=== PATIENT | male | born 1940 | race Hispanic/Latino ===

== ENCOUNTER 2019-12-29 14:07 | Inpatient (IN) | payer OTHER ==
[~2019-12-29] VITALS: Ht 172.7 cm; Wt 124.7 kg
[2019-12-29 14:39] LABS: BASOPHILS % (AUTO) 0.3 % (0.0-5.0); EOSINOPHILS % (AUTO) 1.5 % (0.0-8.0); HEMATOCRIT 43.3 % (42-54); MEAN CORPUSCULAR HGB CONC 33.5 g/dL (32.0-36.0); MEAN CORPUSCULAR VOLUME 95.6 fL (79-99); MONOCYTES % (AUTO) 8.9 % (3.0-13.0); NEUTROPHILS % (AUTO) 68.9 % (40.0-77.0); PLATELET COUNT (AUTO) 220 K/uL (130-400); RED BLOOD CELL COUNT(AUTO) 4.53 MIL/uL (4.50-6.20); RED CELL DISTRIBUTION WIDTH 13.4 % (11.0-15.5); WHITE BLOOD COUNT (AUTO) 7.5 K/uL (4.8-10.8)
[2019-12-29] MEDS ORDERED: ASPIRIN 325 MG TABLET ONE (14:39)
[2019-12-29 14:46] LABS: CREATININE 1.3 mg/dL (0.5-1.5); POTASSIUM 3.7 mmol/L (3.5-5.1)
[2019-12-29 14:50] LABS: ALBUMIN 3.5 g/dL (3.5-5.0); BILIRUBIN,TOTAL 0.5 mg/dL (0.2-1.0); INR 0.99 (0.85-1.15); PARTIAL THROMBOPLASTIN TIME 24.3 SEC (26.3-35.5); PROTHROMBIN TIME 10.7 SEC (9.6-11.6); TOTAL PROTEIN, SERUM 7.2 g/dL (6.0-8.3)
[2019-12-29 15:08] LABS: B-TYPE NATRIURETIC PEPTIDE 38 pg/mL (0-100)
[2019-12-29] MEDS ORDERED: ZOSYN 3.375GM+NS 50ML 50 ML IV ONE (15:21)
[2019-12-29] MEDS ORDERED: IOHEXOL-350 75 ML VIAL IV ONE (16:56)
[2019-12-29 17:19] VITALS: BP 132/74
[2019-12-29 17:22] VITALS: BP 134/58
[2019-12-29 17:26] VITALS: BP 119/68
[2019-12-29] MEDS: CEFAZOLIN SODIUM 1 GM VIAL IVP SCH (18:55)
[2019-12-29 20:00] VITALS: BP 145/79
[2019-12-29] MEDS: FAMOTIDINE 20MG TAB 20 MG TAB PO SCH (20:24)
[2019-12-29] MEDS ORDERED: LIS (20:34)
[2019-12-29] MEDS ORDERED: LISINOPRIL (20:35)
[2019-12-29 22:15] LABS: CREATINE KINASE, TOTAL 32 U/L (21-232); MYOGLOBIN 72 ng/mL (10-92); TROPONIN I < 0.04 ng/mL (0.00-0.06)
[2019-12-29 23:45] LABS: APPEARANCE,URINE Clear (CLEAR); BILIRUBIN,URINE Negative (NEGATIVE); COLOR,URINE Yellow (YELLOW); GLUCOSE, URINE (UA) TRACE mg/dL (NEGATIVE); KETONES,URINE Negative (NEGATIVE); LEUKOCYTE ESTERASE ,URINE Negative (NEGATIVE); NITRATE,URINE Negative (NEGATIVE); OCCULT BLOOD,URINE Negative (NEGATIVE); PROTEIN,URINE Negative (NEGATIVE)
[2019-12-30] VITALS (9 sets, daily range): BP systolic 116–154; BP diastolic 50–73
[2019-12-30 00:02] LABS: BACTERIA,URINE Rare /HPF (None Seen); SQUAMOUS EPITHELIAL CELL,UR 0-2 /HPF (0-2)
[2019-12-30] MEDS: CEFAZOLIN SODIUM 1 GM VIAL IVP SCH ×3 (00:54→17:18)
[2019-12-30 05:01] LABS: CRP QUANTITATIVE 14.1 mg/L (0.00-9.0); THYROID STIMULATING HORMONE 2.42 uIU/mL (0.36-3.74)
[2019-12-30] MEDS: FAMOTIDINE 20MG TAB 20 MG TAB PO SCH (09:00)
[2019-12-30] MEDS: ENOXAPARIN SODIUM 40 MG/0.4 ML SYRINGE SQ SCH (10:23)
[2019-12-30] MEDS: ASPIRIN 81MG TAB.CHEW PO SCH (10:24)
[2019-12-30] MEDS: METOPROLOL SUCCINATE 50 MG TAB.SR.24H PO SCH (13:34)
--- NOTE | 2019-12-30 13:57 | NUR ---
INITIAL SW spoke with patient. He states he lives with his , Jj Ta, [phone]. No home services. DME: cane, wheelchair, walker with seat. Patient states he needs help with ADL's and does not drive. Family assist him with both. PCP is Dr. Toby Estrella. Pharmacy is [facility] located [facility] in [place]. DCP is home. Addendum: 12/30/19 at 1359 by FLETCHER SARAH SS Amended: Links added.
[2019-12-31] MEDS: CEFAZOLIN SODIUM 1 GM VIAL IVP SCH ×3 (00:34→17:37)
[2019-12-31 04:00] VITALS: BP 140/74
[2019-12-31 06:32] LABS: BASOPHILS % (AUTO) 0.5 % (0.0-5.0); EOSINOPHILS % (AUTO) 4.2 % (0.0-8.0); HEMATOCRIT 40.8 % (42-54); LYMPHOCYTES % (AUTO) 26.1 % (21.0-51.0); MEAN CORPUSCULAR HEMOGLOBIN 32.4 pg (27.0-33.0); MEAN CORPUSCULAR HGB CONC 33.3 g/dL (32.0-36.0); MEAN CORPUSCULAR VOLUME 97.1 fL (79-99); MONOCYTES % (AUTO) 11.1 % (3.0-13.0); NEUTROPHILS % (AUTO) 57.4 % (40.0-77.0); PLATELET COUNT (AUTO) 193 K/uL (130-400); RED CELL DISTRIBUTION WIDTH 13.2 % (11.0-15.5); WHITE BLOOD COUNT (AUTO) 5.7 K/uL (4.8-10.8)
[2019-12-31 06:54] LABS: CREATININE 1.1 mg/dL (0.5-1.5); POTASSIUM 3.8 mmol/L (3.5-5.1)
[2019-12-31 08:00] VITALS: BP 119/49
[2019-12-31] MEDS: FAMOTIDINE 20MG TAB 20 MG TAB PO SCH (09:00)
[2019-12-31] MEDS: METOPROLOL SUCCINATE 50 MG TAB.SR.24H PO SCH (09:26)
[2019-12-31] MEDS: ENOXAPARIN SODIUM 40 MG/0.4 ML SYRINGE SQ SCH (09:26)
[2019-12-31] MEDS: ASPIRIN 81MG TAB.CHEW PO SCH (09:27)
[2019-12-31 12:00] VITALS: BP 129/71
[2019-12-31 16:00] VITALS: BP 126/51
[2019-12-31 19:00] VITALS: BP 133/52
[2020-01-01] VITALS (7 sets, daily range): BP systolic 124–147; BP diastolic 46–67
[2020-01-01] MEDS: CEFAZOLIN SODIUM 1 GM VIAL IVP SCH ×3 (01:18→18:05)
[2020-01-01] MEDS: FAMOTIDINE 20MG TAB 20 MG TAB PO SCH (09:00)
[2020-01-01] MEDS: ASPIRIN 81MG TAB.CHEW PO SCH (09:54)
[2020-01-01] MEDS: METOPROLOL SUCCINATE 50 MG TAB.SR.24H PO SCH (09:54)
[2020-01-01] MEDS: ENOXAPARIN SODIUM 40 MG/0.4 ML SYRINGE SQ SCH (09:56)
--- NOTE | 2020-01-01 16:47 | NUR ---
I HAVE SENT A MESSAGE TO DR KAUR IN REGARDS TO RECOMENDATION ON COVID TESTING IF NECESSARY; PENDING CALL BACK
--- NOTE | 2020-01-01 17:45 | NUR ---
RECEIVED CALL BACK FROM DR KAUR AND HE STATED PT DID NOT NEED COVID 19 TESTING
[2020-01-02] MEDS: CEFAZOLIN SODIUM 1 GM VIAL IVP SCH ×3 (01:54→16:49)
[2020-01-02 04:03] VITALS: BP 136/62
[2020-01-02 06:24] LABS: BASOPHILS % (AUTO) 0.3 % (0.0-5.0); EOSINOPHILS % (AUTO) 2.8 % (0.0-8.0); HEMATOCRIT 40.6 % (42-54); LYMPHOCYTES % (AUTO) 22.3 % (21.0-51.0); MEAN CORPUSCULAR HEMOGLOBIN 32.2 pg (27.0-33.0); MEAN CORPUSCULAR HGB CONC 33.5 g/dL (32.0-36.0); MEAN CORPUSCULAR VOLUME 96.2 fL (79-99); MONOCYTES % (AUTO) 8.9 % (3.0-13.0); NEUTROPHILS % (AUTO) 65.4 % (40.0-77.0); PLATELET COUNT (AUTO) 207 K/uL (130-400); RED BLOOD CELL COUNT(AUTO) 4.22 MIL/uL (4.50-6.20); WHITE BLOOD COUNT (AUTO) 5.7 K/uL (4.8-10.8)
[2020-01-02 06:32] LABS: CREATININE 1.2 mg/dL (0.5-1.5); POTASSIUM 3.7 mmol/L (3.5-5.1)
[2020-01-02] MEDS: FAMOTIDINE 20MG TAB 20 MG TAB PO SCH (09:00)
[2020-01-02 09:12] VITALS: BP_SYST 136; BP_SYST 148; BP_DIAS 59; BP_DIAS 79
[2020-01-02] MEDS: ASPIRIN 81MG TAB.CHEW PO SCH (09:27)
[2020-01-02] MEDS: METOPROLOL SUCCINATE 50 MG TAB.SR.24H PO SCH (09:28)
[2020-01-02] MEDS: ENOXAPARIN SODIUM 40 MG/0.4 ML SYRINGE SQ SCH (09:29)
[2020-01-02] MEDS ORDERED: MECLIZINE HCL 25 MG TABLET PO PRN (10:30)
[2020-01-02] MEDS ORDERED: LIDOCAINE 5% TOPICAL PATCH TP SCH (12:55)
[2020-01-02 16:12] VITALS: BP 142/63
[2020-01-02] MEDS ORDERED: KETOROLAC TROMETHAMINE 30MG/ML IM PRN (16:30)
[2020-01-02] MEDS ORDERED: ACETAMINOPHEN EXTRA STRENGTH 500 MG TABLET PO PRN (16:30)
[2020-01-02] MEDS ORDERED: KETOROLAC TROMETHAMINE 30MG/ML ONE (16:47)
[2020-01-02 19:39] VITALS: BP 151/63
[2020-01-02] MEDS ORDERED: IOHEXOL-350 75 ML VIAL IV ONE (19:40)
[2020-01-02] MEDS ORDERED: KETOROLAC TROMETHAMINE 15MG/ML IV PRN (22:30)
[2020-01-02 23:54] VITALS: BP 107/51
[2020-01-03] MEDS: CEFAZOLIN SODIUM 1 GM VIAL IVP SCH ×2 (01:46→08:48)
[2020-01-03 03:41] VITALS: BP 127/65
[2020-01-03 04:08] LABS: BASOPHILS % (AUTO) 0.4 % (0.0-5.0); EOSINOPHILS % (AUTO) 4.4 % (0.0-8.0); HEMATOCRIT 39.2 % (42-54); LYMPHOCYTES % (AUTO) 26.5 % (21.0-51.0); MEAN CORPUSCULAR HEMOGLOBIN 32.5 pg (27.0-33.0); MEAN CORPUSCULAR HGB CONC 33.9 g/dL (32.0-36.0); MEAN CORPUSCULAR VOLUME 95.8 fL (79-99); MONOCYTES % (AUTO) 11.6 % (3.0-13.0); NEUTROPHILS % (AUTO) 56.7 % (40.0-77.0); PLATELET COUNT (AUTO) 205 K/uL (130-400); RED BLOOD CELL COUNT(AUTO) 4.09 MIL/uL (4.50-6.20); RED CELL DISTRIBUTION WIDTH 12.9 % (11.0-15.5)
[2020-01-03 04:34] LABS: ALBUMIN 2.9 g/dL (3.5-5.0); BILIRUBIN,TOTAL 0.5 mg/dL (0.2-1.0); CREATININE 1.1 mg/dL (0.5-1.5); POTASSIUM 3.6 mmol/L (3.5-5.1); TOTAL PROTEIN, SERUM 6.3 g/dL (6.0-8.3)
[2020-01-03 07:30] VITALS: BP 137/63
[2020-01-03] MEDS: METOPROLOL SUCCINATE 50 MG TAB.SR.24H PO SCH (08:48)
[2020-01-03] MEDS: ASPIRIN 81MG TAB.CHEW PO SCH (08:48)
[2020-01-03] MEDS ORDERED: LIDOCAINE 5% TOPICAL PATCH TP SCH (09:00)
[2020-01-03] MEDS: ENOXAPARIN SODIUM 40 MG/0.4 ML SYRINGE SQ SCH (09:07)
[2020-01-03 11:00] VITALS: BP 120/51
[2020-01-03] MEDS ORDERED: ASPI-1005 PO (15:36)
[2020-01-03] MEDS ORDERED: MECL-160 PO (15:36)
[2020-01-03] MEDS ORDERED: CEPH500T PO (15:36)
== END 2020-01-03 18:20 | disposition home or self-care (01) | DRG 603 ==
LOC: EDH 14:07 → EDHIP 15:28 → OBSVTOIN 15:28 → 3BH 16:52
PROVIDERS: ADMIT Internal Medicine; ATTEND Internal Medicine
PROC: 4A00X4Z Measurement of Central Nervous Electrical Activity, External Approach (ICD-10-PCS; principal; 2020-01-03)
DX: L03.116 Cellulitis of left lower limb (principal); Z68.41 Body mass index [BMI] 40.0-44.9, adult; I45.10 Unspecified right bundle-branch block; I20.9 Angina pectoris, unspecified; N40.0 Benign prostatic hyperplasia without lower urinary tract symptoms; I10 Essential (primary) hypertension; R55 Syncope and collapse; D72.810 Lymphocytopenia; E66.01 Morbid (severe) obesity due to excess calories; E11.9 Type 2 diabetes mellitus without complications; E78.5 Hyperlipidemia, unspecified; M19.90 Unspecified osteoarthritis, unspecified site; I83.90 Asymptomatic varicose veins of unspecified lower extremity; Z96.652 Presence of left artificial knee joint; Z79.82 Long term (current) use of aspirin
CPT/HCPCS: 36415; 70450; 70551; 71046; 71275; 73701; 80048; 80053; 80061; 81001; 82550; 82607; 82728; 83605; 83615; 83874; 83880; 84145; 84443; 84484; 85025; 85378; 85610; 85730; 86140; 87040; 87449; 87486; 87581; 87633; 87798; 93005; 93306; 93356; 93880; 93970; 95819; 97039; 99291; G0378; J0690; J1650; J1885; J2543; Q9967

== ENCOUNTER → 2020-02-21 | Outpatient (CLI) | payer OTHER ==
[~2020-02-21] MED LIST: ASPI-1005 PO; CEPH500T PO; LISINOPRIL; MECL-160 PO
== END | disposition home or self-care (01) ==
LOC: SHCH 13:40
PROVIDERS: ATTEND Internal Medicine Cardiovascular Disease
DX: I35.0 Nonrheumatic aortic (valve) stenosis (principal); K21.9 Gastro-esophageal reflux disease without esophagitis
CPT/HCPCS: 93970

== ENCOUNTER → 2020-02-22 | Outpatient (CLI) | payer OTHER | END | disposition home or self-care (01) | LOC: SHCH 15:24 | PROVIDERS: ATTEND Internal Medicine Cardiovascular Disease | DX: I35.0 Nonrheumatic aortic (valve) stenosis (principal) | CPT/HCPCS: 93306; 93356 ==

== ENCOUNTER → 2020-03-19 | Outpatient (CLI) | payer OTHER ==
[~2020-03-19] MED LIST changes: -ASPI-1005 PO; -CEPH500T PO; -LISINOPRIL; -MECL-160 PO; +REGADENOSON 0.4 MG/5 ML PF SYG IVP ONE; +REGADENOSON 0.4 MG/5 ML PF SYG IVP SCH
== END | disposition home or self-care (01) ==
LOC: SHCH 08:46
PROVIDERS: ATTEND Internal Medicine Cardiovascular Disease
DX: I20.8 Other forms of angina pectoris (principal)
CPT/HCPCS: 78452; 93017; 96374; A9500 ×2; J2785

== ENCOUNTER 2020-08-09 00:11 | Observation (INO) | payer OTHER ==
[~2020-08-09 00:11] MED LIST changes: +ASPI-1005 PO; +CEPH500T PO; +LISINOPRIL; +MECL-160 PO; -REGADENOSON 0.4 MG/5 ML PF SYG IVP ONE; -REGADENOSON 0.4 MG/5 ML PF SYG IVP SCH
[2020-08-09 00:44] LABS: BASOPHILS % (AUTO) 0.5 % (0.0-5.0); EOSINOPHILS % (AUTO) 2.3 % (0.0-8.0); HEMATOCRIT 43.2 % (42-54); LYMPHOCYTES % (AUTO) 21.8 % (21.0-51.0); MEAN CORPUSCULAR HEMOGLOBIN 31.7 pg (27.0-33.0); MEAN CORPUSCULAR HGB CONC 32.2 g/dL (32.0-36.0); MEAN CORPUSCULAR VOLUME 98.4 fL (79-99); MONOCYTES % (AUTO) 8.5 % (3.0-13.0); NEUTROPHILS % (AUTO) 66.6 % (40.0-77.0); PLATELET COUNT (AUTO) 209 K/uL (130-400); RED BLOOD CELL COUNT(AUTO) 4.39 MIL/uL (4.50-6.20); RED CELL DISTRIBUTION WIDTH 12.9 % (11.0-15.5); WHITE BLOOD COUNT (AUTO) 6.5 K/uL (4.8-10.8)
[2020-08-09 00:48] LABS: CREATININE 1.3 mg/dL (0.5-1.5); POTASSIUM 4.1 mmol/L (3.5-5.1)
[2020-08-09 00:53] LABS: ALBUMIN 3.5 g/dL (3.5-5.0); BILIRUBIN,TOTAL 0.5 mg/dL (0.2-1.0); TOTAL PROTEIN, SERUM 6.9 g/dL (6.0-8.3)
[2020-08-09] MEDS ORDERED: ONDANSETRON HCL 4 MG/2 ML VIAL ONE (02:13)
[2020-08-09] MEDS ORDERED: ENOXAPARIN SODIUM 120 MG/0.8ML SQ ONE (02:14)
[2020-08-09] MEDS ORDERED: ASPIRIN 325 MG TABLET ONE (02:14)
[2020-08-09] MEDS ORDERED: MORPHINE SULFATE 4 MG/1ML SYG ONE (02:15)
[2020-08-09] MEDS ORDERED: NITROGLYCERIN 1GM/1 INCH PACKET TD ONE (02:15)
[2020-08-09] MEDS ORDERED: ACETAMINOPHEN 325 MG TAB PO PRN ×2 (07:00)
[2020-08-09] MEDS: SODIUM CHLORIDE 0.9% 1000ML 1,000 ML IV SCH ×2 (07:00→17:00)
[2020-08-09] MEDS ORDERED: MORPHINE SULFATE 2 MG/ML 1ML SYG IV PRN (07:00)
[2020-08-09] MEDS ORDERED: NITROGLYCERIN 0.4 MG SL TAB SL PRN (07:00)
[2020-08-09] MEDS ORDERED: GUAIFENESIN-DM 200/20 MG 10 ML PO PRN (07:00)
[2020-08-09] MEDS ORDERED: LACTULOSE 20 GM/30 ML UDCUP PO PRN (07:00)
[2020-08-09] MEDS ORDERED: ZOLPIDEM TARTRATE 5 MG TAB PO PRN (07:00)
[2020-08-09] MEDS ORDERED: MAG HYDROX/AL HYDROX/SIMETH ES 30 ML SUSP UDCUP PO PRN (07:00)
[2020-08-09] MEDS ORDERED: HYDRALAZINE HCL 20 MG/ML VIAL IV PRN (07:00)
[2020-08-09] MEDS ORDERED: ONDANSETRON HCL 4 MG/2 ML VIAL IV PRN (07:00)
[2020-08-09 07:35] LABS: BASOPHILS % (AUTO) 0.4 % (0.0-5.0); EOSINOPHILS % (AUTO) 2.8 % (0.0-8.0); LYMPHOCYTES % (AUTO) 19.9 % (21.0-51.0); MEAN CORPUSCULAR HEMOGLOBIN 31.9 pg (27.0-33.0); MEAN CORPUSCULAR HGB CONC 32.8 g/dL (32.0-36.0); MEAN CORPUSCULAR VOLUME 97.3 fL (79-99); MONOCYTES % (AUTO) 8.9 % (3.0-13.0); NEUTROPHILS % (AUTO) 67.6 % (40.0-77.0); PLATELET COUNT (AUTO) 191 K/uL (130-400); RED BLOOD CELL COUNT(AUTO) 4.01 MIL/uL (4.50-6.20); WHITE BLOOD COUNT (AUTO) 5.6 K/uL (4.8-10.8)
[2020-08-09 07:38] LABS: ALBUMIN 3.3 g/dL (3.5-5.0); BILIRUBIN,TOTAL 0.5 mg/dL (0.2-1.0); CREATININE 1.1 mg/dL (0.5-1.5); POTASSIUM 4.2 mmol/L (3.5-5.1); TOTAL PROTEIN, SERUM 6.5 g/dL (6.0-8.3)
[2020-08-09 07:43] LABS: HEMOGLOBIN A1C 5.6 % (4.0-6.0)
[2020-08-09] MEDS: FAMOTIDINE/PF 20 MG/2 ML VIAL IV SCH (09:00)
[2020-08-09] MEDS: ASPIRIN 325 MG TABLET PO SCH (09:00)
[2020-08-09] MEDS: METOPROLOL TARTRATE 25 MG TAB PO SCH ×2 (09:00→20:17)
[2020-08-09] MEDS: ENOXAPARIN SODIUM 40 MG/0.4 ML SYRINGE SQ SCH (09:00)
[2020-08-09] MEDS ORDERED: METOPROLOL TARTRATE 25 MG TAB ONE (09:15)
[2020-08-09] MEDS ORDERED: ENOXAPARIN SODIUM 40 MG/0.4 ML SYRINGE SQ ONE (09:15)
[2020-08-09] MEDS ORDERED: ASPIRIN 81MG TAB.CHEW ONE (09:15)
[2020-08-09] MEDS ORDERED: FAMOTIDINE/PF 20 MG/2 ML VIAL IV ONE (09:16)
[2020-08-09] MEDS ORDERED: SODIUM CHLORIDE 0.9% 500ML 500 ML IV SCH (12:00)
[2020-08-09 16:37] LABS: INR 1.05 (0.85-1.15); PARTIAL THROMBOPLASTIN TIME 27.5 SEC (26.3-35.5); PROTHROMBIN TIME 11.3 SEC (9.6-11.6)
[2020-08-09] MEDS ORDERED: NITROGLYCERIN 2 MG/VIAL VIAL IV ONE (16:55)
[2020-08-09] MEDS ORDERED: IOHEXOL-350 50ML VIAL IV ONE ×2 (16:55→17:39)
[2020-08-09] MEDS ORDERED: IOHEXOL-350 75 ML VIAL IV ONE ×2 (16:55→17:29)
[2020-08-09] MEDS ORDERED: MIDAZOLAM HCL 1 MG/ML 2ML VIAL ONE (16:55)
[2020-08-09] MEDS ORDERED: LIDOCAINE HCL 2% 20ML ONE (16:56)
[2020-08-09] MEDS ORDERED: BIVALIRUDIN 250 MG/VIAL IV ONE (17:28)
[2020-08-09] MEDS ORDERED: FENTANYL CITRATE PF 50 MCG/1 ML 2ML VIAL ONE (17:29)
[2020-08-09] MEDS ORDERED: SODIUM CHLORIDE 0.9% 1000ML 1,000 ML IV SCH (18:00)
--- NOTE | 2020-08-09 18:15 | NUR ---
POST CATH RECEIVED PT FROM [employer], IN FLAT POSITION, A&OX3, CALM COOPERATIVE AND DOES NOT APPEAR TO BE IN ANY DISTRESS NOR ANY NEURO DEFICITS PRESENT. PT DENIES PAIN, SOB, NAUSEA. RT GROIN SOFT NONTENDER WITH NO OOZING OR HEMATOMA PRESENT. DP/PT PULSES PALPABLE. PT ON BEDREST FOR 3 HOURS, CALL LIGHT WITHIN REACH.
[2020-08-09 18:20] VITALS: BP 119/60
[2020-08-09 19:07] VITALS: BP 127/67
[2020-08-09 19:37] VITALS: BP 117/48
[2020-08-09 20:07] VITALS: BP 105/43
[2020-08-09] MEDS ORDERED: ATORVASTATIN CALCIUM 10 MG TABLET PO SCH (21:00)
[2020-08-09 21:19] VITALS: BP 113/50
[2020-08-09 23:07] VITALS: BP 94/52
[2020-08-10] MEDS: SODIUM CHLORIDE 0.9% 1000ML 1,000 ML IV SCH ×2 (03:00→13:00)
[2020-08-10 03:38] VITALS: BP 109/46
[2020-08-10 06:19] LABS: BASOPHILS % (AUTO) 0.4 % (0.0-5.0); EOSINOPHILS % (AUTO) 2.5 % (0.0-8.0); HEMATOCRIT 38.6 % (42-54); LYMPHOCYTES % (AUTO) 18.9 % (21.0-51.0); MEAN CORPUSCULAR HEMOGLOBIN 31.3 pg (27.0-33.0); MEAN CORPUSCULAR HGB CONC 32.4 g/dL (32.0-36.0); MEAN CORPUSCULAR VOLUME 96.5 fL (79-99); MONOCYTES % (AUTO) 9.6 % (3.0-13.0); NEUTROPHILS % (AUTO) 68.4 % (40.0-77.0); PLATELET COUNT (AUTO) 176 K/uL (130-400); RED CELL DISTRIBUTION WIDTH 12.5 % (11.0-15.5); WHITE BLOOD COUNT (AUTO) 5.3 K/uL (4.8-10.8)
[2020-08-10 06:37] LABS: CREATININE 1.1 mg/dL (0.5-1.5); POTASSIUM 4.1 mmol/L (3.5-5.1)
[2020-08-10 08:42] VITALS: BP 110/55
[2020-08-10] MEDS: ASPIRIN 325 MG TABLET PO SCH (09:00)
[2020-08-10] MEDS ORDERED: LISINOPRIL 10 MG TABLET PO SCH (09:00)
[2020-08-10] MEDS ORDERED: ASPIRIN 81MG TAB.CHEW ONE (09:27)
[2020-08-10] MEDS: FAMOTIDINE/PF 20 MG/2 ML VIAL IV SCH (09:32)
[2020-08-10] MEDS: METOPROLOL TARTRATE 25 MG TAB PO SCH (09:33)
[2020-08-10] MEDS: ENOXAPARIN SODIUM 40 MG/0.4 ML SYRINGE SQ SCH (09:33)
[2020-08-10 11:27] VITALS: BP 105/58
[2020-08-10] MEDS ORDERED: ATOR10 PO (13:14)
[2020-08-10] MEDS ORDERED: LISI-617 PO (13:14)
[2020-08-10] MEDS ORDERED: METO25TA6 PO (13:14)
--- NOTE | 2020-08-10 14:02 | NUR ---
MET WITH PATIENT AT BEDSIDE FOR DC PLANNING PATIENT FOR DC TODAY. PATIENT STATES LIVES WITH SPOUSE, IS INDEPENDENT, HAS CPA AND NEBULIZER BUT NO OTHER DME, HAS PROVIDER [facility]OUGH [facility] AT 1.5 HRS DAILY. SPOUSE DOES ALL THE DRIVING, DCP HOME, GE[place]GIN[place] TO FOLLOW Addendum: 08/10/20 at 1924 by IGGY RAY RN CM Amended: Links added.
--- NOTE | 2020-08-10 14:33 | NUR ---
DISCHARGE DC INSTRUCTIONS GIVEN TO PATIENT, VERBALIZED UNDERSTANDING. PRESCRIPTIONS SENT TO B. IV DISCONTINUED.
== END 2020-08-10 14:25 | disposition home or self-care (01) ==
LOC: EDH 00:11 → EDHIP 06:57 → 4CH 18:41
PROVIDERS: ADMIT Hospitalist; ATTEND Hospitalist
DX: R07.89 Other chest pain (principal); I25.110 Atherosclerotic heart disease of native coronary artery with unstable angina pectoris; J98.4 Other disorders of lung; I10 Essential (primary) hypertension; R42 Dizziness and giddiness; E66.01 Morbid (severe) obesity due to excess calories; F41.8 Other specified anxiety disorders; E78.5 Hyperlipidemia, unspecified; N40.0 Benign prostatic hyperplasia without lower urinary tract symptoms; J45.909 Unspecified asthma, uncomplicated; I45.10 Unspecified right bundle-branch block; Z77.098 Contact with and (suspected) exposure to other hazardous, chiefly nonmedicinal, chemicals; Z96.652 Presence of left artificial knee joint; Z90.49 Acquired absence of other specified parts of digestive tract; Z79.82 Long term (current) use of aspirin; Z79.899 Other long term (current) drug therapy
CPT/HCPCS: 36415 ×2; 71045; 80048; 80053 ×2; 82550; 83036; 84484 ×5; 85025 ×3; 85610; 85730; 93005 ×3; 93458; 96372; 96374; 99285; C1894 ×2; G0378 ×19; J1644; J1650 ×2; J2250; J2270; J2405; J3010; J3490 ×4; Q9967 ×3; 99156; 99157; J0583